=== PATIENT | female | born 1995 | race Caucasian/White ===

== ENCOUNTER → 2022-11-23 | Outpatient (CLI) | payer OTHER, SELFPAY ==
[2022-11-23 10:28] LABS: Absolute Lymphocyte Count 2.01 X10^3/uL (0.83-4.51); Absolute Neutrophil Count 3.5 X10^3/uL (2.0-7.7); Basophil# 0.04 X10^3/uL; Basophil% 0.6 % (0-1); Eosinophil# 0.28 X10^3/uL; Eosinophils% 4.5 % (0-5); Hematocrit 34.8 % (37-47); Hemoglobin 11.4 g/dL (12.0-15.0); Lymphocyte # 2.01 X10^3/ul (0.83-4.51); Lymphocyte % 32.5 % (19-41); Mean Corp Hgb Conc 32.8 g/dL (32-36); Mean Corpuscular Hgb 30.2 pg (27.0-32.0); Mean Corpuscular Volume 92.1 fL (81-99); Mean Platelet Vol. 10.7 fl (6.2-12.0); Monocyte# 0.37 X10^3/uL; NRBC Flagged by Analyzer 0 % (0-5); Neutrophil # 3.47 X10^3/uL (2.7-7.7); Neutrophil % 56.2 % (47-70); Platelet Count 391 K/mm3 (150-450); RBC Distribution Width CV 12.2 % (11.6-14.6); RBC Distribution Width SD 40.9 fl (35.1-43.9); Red Blood Count 3.78 M/mm3 (4.2-5.4); White Blood Count 6.2 K/mm3 (4.4-11.0)
[2022-11-23 10:56] LABS: ALB/GLOB Ratio 0.8 RATIO (0.9-2.4); AST(SGOT) 18 U/L (15-37); Alanine Aminotransfer ALT/SGPT 22 U/L (13-56); Albumin, Serum 3.6 g/dL (3.2-5.0); Alkaline Phosphatase 66 U/L (45-117); Anion Gap 6 (5-15); BUN 15 mg/dL (7-18); BUN/Creat Ratio 20.1 RATIO (10-20); Calcium,Total 8.8 mg/dL (8.5-10.1); Chloride 106 mmol/L (98-107); Creatinine, Serum 0.75 mg/dL (0.55-1.02); EST Glomerular Filtration Rate 98 mL/min (>60); Est Glom Filt Rate - Afr Amer 118 mL/min (>60); Globulin 4.7 g/dL (2.2-4.2); Glucose 92 mg/dL (74-106); Potassium 4.2 mmol/L (3.5-5.1); Protein, Total 8.3 g/dL (6.4-8.2); Sodium Level 137 mmol/L (136-145); Thyroid Stim Hormone (TSH) 1.18 uIU/mL (0.358-3.74)
[2022-11-23 14:49] LABS: Hemoglobin A1c 5.3 % (3.8-5.6)
[2022-11-24 10:31] LABS: Iron 111 ug/dL (50-170); Magnesium 1.9 mg/dL (1.6-2.6)
[2022-11-24 10:38] LABS: Vitamin B12 291 pg/mL (211-911); Vitamin D,25 Hydroxy 14.9 ng/mL
== END | disposition home or self-care (01) ==
LOC: MFPLAB 08:05
PROVIDERS: PCP Family Medicine; Referring Provider Family Medicine; Visit Provider Family Medicine
DX: Z13.21 Encounter for screening for nutritional disorder (principal); Z13.0 Encounter for screening for diseases of the blood and blood-forming organs and certain disorders involving the immune mechanism; Z13.228 Encounter for screening for other metabolic disorders
CPT/HCPCS: 36415; 80053; 82306; 82607; 83036; 83540; 83735; 84443; 85025

== ENCOUNTER → 2023-07-07 | Outpatient (CLI) | payer OTHER, SELFPAY ==
--- NOTE | 2023-07-07 06:55 | MRI_ITS ---
STUDY: MRI RIGHT WRIST WITHOUT CONTRAST REASON FOR EXAM: Female, 27 years old. Painful ganglion cyst. TECHNIQUE: Standardized fat and water weighted pulse sequences were obtained in all 3 orthogonal planes. COMPARISON: Right wrist radiographs dated 06/09/2023. FINDINGS: There is a multiseptated ganglion cyst located adjacent to the dorsal margin of the scaphoid-capitate joint, overall measuring 0.5 cm AP, 1.2 cm transverse, and 0.7 cm craniocaudad (axial STIR series 7 images 14-15; coronal STIR series 5 images 14-16). Normal visualized distal radius and ulna. Normal distal radioulnar articulation (DRUJ). Normal triangular fibrocartilaginous complex (TFCC). Normal carpal bones. Normal radiocarpal, intercarpal and midcarpal articulations. Normal pisotriquetral articulation. Normal visualized interosseous scapholunate ligament. Normal visualized dorsal (extrinsic) ligaments. Normal visualized volar (extrinsic) ligaments. Normal extensor tendons. Normal flexor tendons. Normal carpal tunnel with a normal median nerve. Normal carpometacarpal articulation of the thumb. Normal second through fifth carpometacarpal articulations. Normal visualized metacarpal bones. MRI/Upper Ext Joint Only(Routine) IMPRESSION: 0.5 x 1.2 x 0.7 cm multiseptated ganglion cyst located adjacent to the dorsal margin of the scaphoid-capitate joint. Electronically Signed: Armando Dunaway MD at 13:48 EST ,
== END | disposition home or self-care (01) ==
PROVIDERS: PCP Family Medicine; Referring Provider Orthopaedic Surgery Sports Medicine; Visit Provider Orthopaedic Surgery Sports Medicine
DX: M67.431 Ganglion, right wrist (principal)
CPT/HCPCS: 73221

== ENCOUNTER 2023-08-15 12:46 | Day surgery (SDC) | payer OTHER, SELFPAY ==
[2023-08-15 13:07] LABS: Internal QC Validated? YES +Cl - CLEAR BKGD
[2023-08-15 13:08] LABS: Pregnancy, Urine Negative Negative
[2023-08-15] MEDS: Lactated Ringers 1,000 ML 15 ML IV (13:16)
[2023-08-15 13:18] VITALS: BP 135/92; PULSE 94; RESP 18; TEMP 36.8; O2SAT 98; BMI 29.6
--- NOTE | 2023-08-15 13:46 | HP.PCM_ITS ---
HPI - General HPI Narrative BIANCA VALLE, is a 27 F who presents for right wrist ganglion cyst excision. no changes to h and p. ok to proceed. states cyst got a little smaller. still can palpate a small mass there midline dorsum of the wrist. marked. discussed post op restrictions and pain control regime. fu 2 days. no further concerns. will plan local/mac per dr. rojo. MR#: [id number] Acct: [id number] Name: BIANCA VALLE Rep #: [id number] : 1995 Provider: Dr. Sundeep Mccracken MD Age/Sex: 27/F Location: [facility] [place] Status: Signed Intake Vital Signs 06/09/2313:51 Height 5 ft 5 in Weight: 180 lb BMI 29.9 Intake Visit Reasons: RIGHT WRIST Chief Complaint: MRI Review Right Wrist Bank Guard Required: No Accompanied by: Self Is patient in pain?: No Allergies cat dander Allergy (Mild, Verified 07/31/23 15:12) runny nosedog dander Allergy (Mild, Verified 07/31/23 15:12) runny noseethinyl estradiol [From Seasonale ()] Allergy (Mild, Verified 07/31/23 15:12) runny noselevonorgestrel [From Seasonale (91)] Allergy (Mild, Verified 07/31/23 15:12) runny nose Medications albuterol sulfate 90 mcg/actuation breath activated powder inhaler 1 inh inhalation ONCE 06/09/23 [History Confirmed 07/31/23] calcium acetate 667 mg tablet 667 mg PO ONCE 06/09/23 [History Confirmed 07/31/23] cholecalciferol (vitamin D3) 250 mcg (10,000 unit) capsule 250 mcg PO QWEEK 06/09/23 [History Confirmed 07/31/23] desogestrel 0.15 mg-ethinyl estradiol 0.03 mg tablet (Enskyce) tab PO 06/09/23 [History Confirmed 07/31/23] hydroxyzine pamoate 25 mg capsule mg PO 06/09/23 [History Confirmed 07/31/23] sertraline 50 mg tablet mg PO 06/09/23 [History Confirmed 07/31/23] vitamin B12 0.5 mg-folic acid 1 mg tablet 1 tab PO DAILY 06/09/23 [History Confirmed 07/31/23] ruxolitinib 1.5 % topical cream (Opzelura) 1 applic topical BID 07/31/23 [History Confirmed 07/31/23] PFSH Medical History Ganglion, right wrist Surgical History Hx of colonoscopy Hx of endoscopy Social History (Updated 07/31/23 @ 15:13 by Courtney Montelongo) Smoking Status: Never smoker alcohol intake: current alcohol intake frequency: a few times a week substance use type: does not use HPI RIGHT WRIST Details: This documentation accurately reflects the service provided and the decisions made by me, Dr. Sundeep Mccracken MD 07/31/23 1500. Part of today?s visit was documented by [ ], acting as scribe. BIANCA VALLE is a 27 year old F here today for MRI FU for ganglion cyst right wrist. still bothersome and wants it removed. Ortho Exam General General: Yes no acute distress Neurologic: Yes alert and Yes oriented x3 Psychologic: Yes reasonable and appropriate Right Wrist/Hand Skin/Wound: Yes CDI, No Swelling, No Ecchymosis, Yes nail intact and Yes capillary refill normal Contralateral Normal: Yes A1 melchor trigger: No Right Wrist: Yes ROM-Extension 0-60, ROM-Flexion 0-80, ROM-Pronation 0-80, ROM- Supination 0-90 and Palpable Nodule; No tender to palpate 1st dorsal compartment, Thenar Atrophy or Hypothenar Atrophy Motor: EPL: 5, FDP-2: 5, 1st Dorsal Interosseous: 5 and APB: 5 Sensation: Radial: I, Ulnar: I and Median: I WRIST: small 1-2cm round lesion consistent w ganlgion cyst mid dorsum of the wrist, soft, mobile, min tender. Left Wrist/Hand Skin/Wound: No Swelling and No Ecchymosis Supplemental Info [facility] Imaging Services [address] [place] [address] Upper Ext Joint Only(Routine) MR#: [id number] Acct: [id number] Name: BIANCA VALLE Rep #: [id number] : 1995 F 27 From: Armando Dunaway MD PCP: Vidya Zhang DO Status: REG CLI Study: Upper Ext Joint Only(Routine) Date of Exam: 07/07/23 Exam# [id number] Ordering Dr: Sundeep Mccracken MD STUDY: MRI RIGHT WRIST WITHOUT CONTRAST REASON FOR EXAM: Female, 27 years old. Painful ganglion cyst. TECHNIQUE: Standardized fat and water weighted pulse sequences were obtained in all 3 orthogonal planes. COMPARISON: Right wrist radiographs dated 06/09/2023. FINDINGS: There is a multiseptated ganglion cyst located adjacent to the dorsal margin of the scaphoid-capitate joint, overall measuring 0.5 cm AP, 1.2 cm transverse, and 0.7 cm craniocaudad (axial STIR series 7 images 14-15; coronal STIR series 5 images 14-16). Normal visualized distal radius and ulna. Normal distal radioulnar articulation (DRUJ). Normal triangular fibrocartilaginous complex (TFCC). Normal carpal bones. Normal radiocarpal, intercarpal and midcarpal articulations. Normal pisotriquetral articulation. Normal visualized interosseous scapholunate ligament. Normal visualized dorsal (extrinsic) ligaments. Normal visualized volar (extrinsic) ligaments. Normal extensor tendons. Normal flexor tendons. Normal carpal tunnel with a normal median nerve. Normal carpometacarpal articulation of the thumb. Normal second through fifth carpometacarpal articulations. Normal visualized metacarpal bones. MRI/Upper Ext Joint Only(Routine) IMPRESSION: 0.5 x 1.2 x 0.7 cm multiseptated ganglion cyst located adjacent to the dorsal margin of the scaphoid-capitate joint. Electronically Signed: Armando Dunaway MD at 13:48 EST , Coding Level of Care Code Off vis,est,level 3 Diagnoses Ganglion, right wrist M67.431 Assessment and Plan Assessment and Plan (1) Ganglion, right wrist: Status: Acute Plan: BIANCA VALLE is a 27 year old F here today for MRI FU for ganglion cyst right wrist. MRI confirms the dx. Options here would be rest ice doing nothing anti-inflammatories bracing aspira tion high recurrence rate 50 to 60% as well as surgical excision would still has chance of recurrence albeit much lower than aspiration. Patient is interested in a more definitive permanent surgical solution that would be right wrist ganglion cyst excision. Most common risk is stiffness. Pros and cons risks and benefits were discussed with the patient including but not limited to infection, pain, stiffness, bleeding, damage to surrounding structures, neurovascular injury, recurrence or retear, failure or wear of hardware or fixation, instability, fracture, deep vein thrombosis and pulmonary embolism, anesthetic risks, , patient dissatisfaction, need for further surgery and other risks. Patient understood and wished to proceed with surgery, and signed the informed consent documentation. [facility] Medical History (Updated 08/09/23 @ 10:51 by Patricia Adkins) Easy bruising Eczema Ganglion, right wrist Gastric reflux Heartburn History of ulceration Low iron Non-smoker Restless legs Wears glasses Home Medications albuterol sulfate 90 mcg/actuation breath activated powder inhaler 1 inh inhalation ONCE PRN shortness of breath or wheezing 06/09/23 [History Last Taken Unknown] calcium acetate 667 mg tablet 667 mg PO ONCE 06/09/23 [History Last Taken Unknown] cholecalciferol (vitamin D3) 250 mcg (10,000 unit) capsule 250 mcg PO DAILY 06/09/23 [History Last Taken Unknown] desogestrel 0.15 mg-ethinyl estradiol 0.03 mg tablet (Enskyce) 1 tab PO DAILY 06/09/23 [History Last Taken Unknown] hydroxyzine pamoate 25 mg capsule 25 mg PO DAILY 06/09/23 [History Last Taken Unknown] sertraline 50 mg tablet 50 mg PO DAILY PRN anxiety 06/09/23 [History Last Taken 08/15/23] vitamin B12 0.5 mg-folic acid 1 mg tablet 1 tab PO DAILY 06/09/23 [History Last Taken Unknown] ruxolitinib 1.5 % topical cream (Opzelura) 1 applic topical BID 07/31/23 [History Last Taken Unknown] Allergy/AdvReac Type Severity Reaction Status Date / Time cat dander Allergy Mild runny nose Verified 08/09/23 10:41 dog dander Allergy Mild runny nose Verified 08/09/23 10:41 ethinyl estradiol Allergy Mild runny nose Verified 08/09/23 10:41 [From Seasonale ()] levonorgestrel Allergy Mild runny nose Verified 08/09/23 10:41 [From Seasonale ()] Surgical History (Updated 08/09/23 @ 10:51 by Patricia Adkins) History of oral surgery History of wisdom tooth extraction Hx of colonoscopy Hx of endoscopy Social History (Updated 07/31/23 @ 15:13 by Courtney Montelongo) Smoking Status: Never smoker alcohol intake: current alcohol intake frequency: a few times a week substance use type: does not use Vital Signs Vital Signs Vital Signs: 08/15/23 13:18 08/15/23 13:18 Temperature 98.3 F Temperature Source Temporal Pulse Rate 94 Respiratory Rate 18 Respiratory Pattern Normal Blood Pressure 135/92 H Blood Pressure Mean 106 Blood Pressure Source Monitor Blood Pressure Position Semi-Fowlers Blood Pressure Location Right Arm Pulse Ox 98 Oxygen Delivery Method Room Air Weight Weight: 178 lb Body Mass Index (BMI) 29.6 Results Lab / Micro Data Labs: Laboratory Results - last 24 hr 08/15/23 12:55: Urine Test Negative
[2023-08-15] MEDS: Cefazolin 2 GM in 0.9% Normal Saline (100mL Bag) 100 ML IV (13:53)
[2023-08-15] MEDS: Bupivacaine 0.25% 30 ML Vial (14:03)
--- NOTE | 2023-08-15 14:25 | GANG_PTH ---
PATHOLOGY RESULTS PATIENT: BIANCA VALLE LOC: [facility] [place] U#:[id number] AGE/SX: 27/F ROOM: RE08/15/[address]: Dr. Sundeep Mccracken MD : 1995 BED: DIS: 08/15/2023 SPEC #: [id number] RECD: 08/16/23 07:32 STATUS: CLYDE ELSA #: [id number] BELKIS: 08/15/23 14:[address]: Sundeep Mccracken DEPT: SURGICAL PATHOLOGY RECD BY: Jacqueline Loredo ENTERED: 08/16/23 07:33 SP TYPE: GANGLION OTHR DR: Vidya Zhang DO Tissues: GANGLION CYST Procedures: Surgery Specimen Level III HEADER OPERATION: Right wrist ganglion cyst excision PRE-OP DIAGNOSIS: Ganglion right wrist TISSUE SUBMITTED: Right wrist ganglion cyst/tissue MICROSCOPIC DIAGNOSIS Right ganglion cyst/tissue, excision: Fragments of fibroadipose and fibroconnective tissue with focal changes consistent with ganglion cyst and reactive changes. ZACKARY:jennifer 08/17/2023 MICROSCOPIC DESCRIPTION Slides are reviewed. GROSS DESCRIPTION Received in fixative is one container labeled with the patient's name and designated right wrist ganglion cyst/tissue. The specimen consists of multiple irregular fragments of lewis-brown soft tissue that in aggregate measure 2.0 x 1.5 x 0.3 cm. The specimen is totally submitted in one cassette. / ZACKARY:jennifer 08/16/2023 TC:5 CPT: 58980
--- NOTE | 2023-08-15 14:45 | PCM.OPRPT ---
Problems Associated Problem List Diagnoses (1) Ganglion, right wrist: Report of Operation Date of Procedure: 08/15/23 Pre-Operative Diagnosis: Right wrist dorsal ganglion cyst Post-Operative Diagnosis: Same Surgery/Procedure Performed:: Right wrist excision ganglion cyst Surgeon: Sundeep Mccracken Type of Anesthesia: Local and MAC Anesthesiologist: Juwan Ford Specimen's removed: ganglion cyst Estimated Blood Loss (mL): 5 Description of Procedure: Patient brought the operating room theater. Placed supine on the table. Local MAC anesthetic. 2 g IV Ancef administered prior to start of procedure. Patient supine. Arm table to the patient's right side all bony promises padded. SCDs on the legs. Tourniquet placed and padded. Upper extremity prepped and draped in the usual sterile fashion chlorhexidine-based prep solution allowing over 3 minutes drying time prior to draping. Preoperative timeout performed to confirm the site patient with surgery. Elevated the tourniquet 250mmhg. Used 3 cc of quarter percent local anesthetic at the previously marked site of the dorsal ganglion cyst. Made a transverse incision at the site. Carried dissection down through skin and subcutaneous tissue achieved meticulous hemostasis. Removed any tissue that appeared to be prominent over scapho capitate joint. There was 1 small area that did appear to have a stalk that I removed as well. Protected the tendons. No obvious gelatinous fluid, however patient stated before surgery this had become less prominent. Tissue sent for pathology. Wound thoroughly irrigated. Tourniquet let down. Hemostasis achieved. Wound thoroughly irrigated. Subcutaneous tissue closed with 3-0 Vicryl suture and skin with 4-0 Monocryl. Skin cleaned with wet and dry dressing followed application of Steri-Strips Adaptic 4 x 4 gauze Johann dressing with tape. Patient woken up from the anesthetic transferred off the operating table and taken to postanesthetic care unit in stable condition. All sponge needle instrument counts were correct no complications. cpt 13551? Complications none Admit VTE Documentation VTE Present on Admission: No VTE Mechan Device Prophylaxis: SCD's VTE Pharm Prophylaxis ordered?: No Reason prophylaxis not ordered:: Treatment Not Indicated Procedures Musculoskeletal 20xxx-29xxx: Other Procedure See Report
[2023-08-15 14:48] VITALS: BP 135/92; BP 143/90; PULSE 103; RESP 16; TEMP 36.4; O2SAT 98
[2023-08-15 14:50] VITALS: BP 135/92; BP 153/90; PULSE 85; RESP 16; O2SAT 97
--- NOTE | 2023-08-15 14:53 | DCINST_ITS ---
Discharge Instructions Diet Discharge Diet: No restrictions Activity Keep extremity elevated above heart level: Operative Extremity Additional Activity Instructions:: gentle rom of fingers and wrist, no heavy lifting or gripping Dressing / Incision Call your doctor if your incision/area has: Continuous Slow Oozing, Sudden Increased Bleeding, Increased Pain/ Swelling, Increased Redness, Foul Smelling D ischarge and Swelling at the incision site Change Dressing in: 2 days Follow Up Care Please Follow Up With: Sundeep Mccracken MD When: 2 days or 2 weeks Test Results: Test results from this visit will be discussed in further detail at your follow- up appointment, if applicable. Discharge Plan Admission Attending Provider: Sundeep Mccracken Primary Care Provider: Vidya Zhang Discharge Orders/Prescriptions Prescriptions: No Action sertraline 50 mg tablet 50 mg PO DAILY PRN (Reason: anxiety) Patient Comments: TAKE 1 TABLET BY MOUTH EVERY DAY desogestrel-ethinyl estradiol [Enskyce] 0.15-0.03 mg tablet 1 tab PO DAILY hydroxyzine pamoate 25 mg capsule 25 mg PO DAILY Patient Comments: TAKE 1 CAPSULE BY MOUTH EVERY 6 HOURS NEEDED FOR ANXIETY calcium acetate 667 mg tablet 667 mg PO ONCE cholecalciferol (vitamin D3) 250 mcg (10,000 unit) capsule 250 mcg PO DAILY vitamin [id number] acid 0.5-1 mg tablet 1 tab PO DAILY albuterol sulfate 90 mcg/actuation aerosol powdr breath activated 1 inh inhalation ONCE PRN (Reason: shortness of breath or wheezing) Opzelura 1.5 % cream 1 applic topical BID Referrals / Follow Up: Vidya Zhang DO [Primary Care Provider] - Sundeep Mccracken MD [Med Staff - Active Staff] - Disposition Disposition (needs filled in before D/C Order can be placed): Home, Self Care
[2023-08-15 14:55] VITALS: BP 135/92; BP 153/92; PULSE 89; RESP 16; O2SAT 98
[2023-08-15 15:00] VITALS: BP 135/92; BP 152/81; PULSE 84; RESP 16; TEMP 36.9; O2SAT 98
[2023-08-15 15:34] VITALS: BP 135/92
== END 2023-08-15 15:40 | disposition home or self-care (01) ==
LOC: SDC 12:47 → AC 12:48
PROVIDERS: Anesthesiology; PCP Family Medicine; Referring Provider Family Medicine; Visit Provider Orthopaedic Surgery Sports Medicine
PROC: (CPT 25112; principal; 2023-08-15 14:10)
DX: M67.431 Ganglion, right wrist (principal)
CPT/HCPCS: 25112; 01810; 81025; 88304; J2405

== ENCOUNTER → 2024-10-21 | Outpatient (CLI) | payer OTHER, SELFPAY ==
--- NOTE | 2024-10-21 15:22 | RAD_ITS ---
PROCEDURE: ELBOW MIN 3 VIEWS REASON FOR EXAM: Elbow pain TECHNIQUE: Three views of the left elbow were obtained. COMPARISON: None. FINDINGS: No visible fracture. No suspicious bone lesion. Normal alignment. No effusion. Soft tissues are unremarkable. RAD/Elbow min 3 Views IMPRESSION: No acute fracture or dislocation. Reading Location: [facility]
== END | disposition home or self-care (01) ==
PROVIDERS: PCP Family Medicine; Referring Provider Family Medicine; Visit Provider Family Medicine
DX: M25.529 Pain in unspecified elbow (principal)
CPT/HCPCS: 73080

== ENCOUNTER → 2025-06-06 | Outpatient (CLI) | payer OTHER, SELFPAY ==
[2025-06-06 18:53] LABS: HIV Nonreactive (Nonreactive); Hepatitis B Surface Antigen Nonreactive (Nonreactive); Hepatitis C Antibody Nonreactive (Nonreactive); Syphilis Antibodies Nonreactive (Nonreactive)
== END | disposition home or self-care (01) ==
LOC: MFPLAB 15:10
PROVIDERS: PCP Family Medicine
DX: Z77.21 Contact with and (suspected) exposure to potentially hazardous body fluids (principal)
CPT/HCPCS: 36415; 86703; 86706; 86780; 86803; 87340

== ENCOUNTER → 2025-07-08 | Outpatient (CLI) | payer OTHER, SELFPAY ==
[2025-07-08 18:19] LABS: AST(SGOT) 23 U/L (<=31); Alanine Aminotransfer ALT/SGPT 23 U/L (<=34); Albumin, Serum 4.3 g/dL (3.5-5.0); Alkaline Phosphatase 90 U/L (35-104); Anion Gap 10 (5-15); BUN 12 mg/dL (4-19); BUN/Creat Ratio 18.0 RATIO (10-20); Calcium,Total 9.1 mg/dL (7.6-11.0); Carbon Dioxide 24.4 mmol/L (21.0-32.0); Chloride 104 mmol/L (98-108); Globulin 3.6 g/dL (2.2-4.2); Glucose 102 mg/dL (70-99); Potassium 3.9 mmol/L (3.3-5.1); Vitamin B12 502 pg/mL (180-914); Vitamin D,25 Hydroxy 18.5 ng/mL (30-100)
== END | disposition home or self-care (01) ==
LOC: MTLAB 16:15
PROVIDERS: PCP Family Medicine
DX: Z00.00 Encounter for general adult medical examination without abnormal findings (principal); Z13.1 Encounter for screening for diabetes mellitus; R53.83 Other fatigue; R63.4 Abnormal weight loss
CPT/HCPCS: 36415; 80053; 82306; 82607; 83036; 84443

== ENCOUNTER → 2025-07-11 | Outpatient (CLI) | payer OTHER, SELFPAY ==
[2025-07-16 13:08] LABS: Cortisol, Free 24Ur 27 ug/24 hr (6-42)
== END | disposition home or self-care (01) ==
PROVIDERS: PCP Family Medicine
DX: R53.83 Other fatigue (principal)
CPT/HCPCS: 81050; 82530

== ENCOUNTER → 2025-07-16 | Outpatient (CLI) | payer OTHER, SELFPAY | END | disposition home or self-care (01) | PROVIDERS: PCP Family Medicine | DX: R53.83 Other fatigue (principal) | CPT/HCPCS: 36415 ==